=== PATIENT | female | born 1960 | race African-American/Black ===

== ENCOUNTER 2020-07-21 14:37 | Emergency (ER) | payer OTHER ==
[~2020-07-21] VITALS: Ht 160 cm; Wt 91.2 kg
[~2020-07-21 14:37] MED LIST: ASCORBIC ACID500 M1 PO; CARVEDILOL6.25 MG PO; IRON325 PO; LANOXIN 0.120.125 M1 PO; LISINOPRIL2.5 MG PO; METHIMAZOLE PO; MULTIVIT; NOHOMEMEDICATIONS; POTASSIUM20 PO; SPIRONOLACTONE25 M1 PO; TORSEMIDE PO; WARFARIN PO
[2020-07-21 17:42] LABS: BASOPHILS 0.9 % (0.0-2.0); EOSINOPHILS 2.7 % (0.0-3.0); HEMATOCRIT 43.1 % (37.0-47.0); HEMOGLOBIN 13.8 gm/dL (12.0-15.0); MCH 29.6 pg (26.0-34.0); MCHC 32.1 g/dL (28.0-37.0); MCV 92.2 fL (80.0-100.0); MONOCYTES 8.4 % (1.0-8.0); PLATELET COUNT 214 thou/uL (150-400); RBC 4.68 mil/uL (4.20-5.00); RDW 15.4 % (10.5-14.5); WBC 8.8 thou/uL (4.0-11.0)
[2020-07-21 17:54] LABS: CALCIUM 8.9 mg/dL (8.5-10.1); CREATININE 1.1 mg/dL (0.6-1.0); POTASSIUM 3.8 mmol/L (3.5-5.1)
[2020-07-21 17:56] LABS: INR 1.1; PROTIME 11.4 Seconds (9.3-11.4)
[2020-07-21 18:00] LABS: ALBUMIN 3.5 g/dL (3.4-5.0); DIRECT BILIRUBIN 0.2 mg/dL (<0.1-0.2); TOTAL BILIRUBIN 0.5 mg/dL (0.2-1.0); TOTAL PROTEIN 7.6 g/dL (6.4-8.2)
[2020-07-21] MEDS ORDERED: TAPAZOLE5 MG PO (19:54)
[2020-07-21] MEDS ORDERED: SUPER THERAVIT1 EACH PO (19:54)
[2020-07-21] MEDS ORDERED: HYDRALAZINE 2525 MG PO (19:54)
[2020-07-21] MEDS ORDERED: SIMVASTATIN40 MG PO (19:55)
[2020-07-21] MEDS ORDERED: PREGABALIN50 MG PO (19:56)
[2020-07-21] MEDS ORDERED: PROTONIX40 M2 PO (19:57)
[2020-07-21] MEDS ORDERED: CARVEDILOL25 MG PO (19:57)
[2020-07-21] MEDS ORDERED: FUROSEMIDE 40 M40 M1 PO (19:57)
[2020-07-21] MEDS ORDERED: AMBIEN 5 MG TABL5 M1 PO (19:57)
[2020-07-21] MEDS ORDERED: K-DUR 20 MEQ T20 MEQ PO (19:57)
[2020-07-21] MEDS ORDERED: CYCLOBENZAPRINE10 MG PO (19:59)
[2020-07-21] MEDS ORDERED: HYDRALAZINE 5050 MG PO (20:00)
[2020-07-21 21:08] VITALS: BP 104/60
--- NOTE | 2020-07-22 07:52 | EKG ---
[facility] [place] [address] ELECTROCARDIOGRAM REPORT Name: CHILANGO MCCONNELL Room #: DEP [facility]#: [id number] Admission: 07/21/20 Attend Phys: Discharge: 07/21/20 Date of : 56 Report #: [id number] THIS REPORT FOR: cc: Nela Thompson MD, Linda MD Lundgren,Nikhil Santamaria MD MERGED WITH [facility] ~ THIS REPORT FOR: //name// 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: [facility] : 1960 Requested By: Silvia Vargas Order Number: [id number] MD: Nikhil Waters Measurements Intervals [place] Rate: 107 P: 0 ME: 135 QRS: 17 QRSD: 92 T: 92 QT: 428 QTc: 571 Interpretive Statements Sinus tachycardia Atrial premature complexes Nonspecific ST and T wave abnormality Prolonged QT interval Compared to ECG 04/13/2011 12:17:16 Nonspecific change in the ST and T wave segments Atrial fibrillation no longer present Electronically Signed On 07-22-2020 7:52:47 [employer] WORK[employer] by Nikhil Waters [email or web address] <ELECTRONICALLY SIGNED> By: Nikhil Waters MD, FAC 07/22/20 0752 180 180 [email or web address] Waters MD, MERGED WITH [facility] /EPI
== END 2020-07-21 21:09 | disposition short-term general hospital (02) ==
LOC: ER 14:37
PROVIDERS: Nurse Practitioner
DX: I74.5 Embolism and thrombosis of iliac artery (principal); Z79.899 Other long term (current) drug therapy; Z88.6 Allergy status to analgesic agent; Z88.8 Allergy status to other drugs, medicaments and biological substances